=== PATIENT | female | born 1970 | race Caucasian/White ===

== ENCOUNTER 2023-11-19 23:10 | Emergency (ER) | payer MEDICAID, OTHER ==
[~2023-11-19] VITALS: Ht 157.5 cm; Wt 65.8 kg
[2023-11-19 23:23] VITALS: BP 131/59; PULSE 63; RESP 14; TEMP 98.6; O2SAT 99
[2023-11-20] MEDS ORDERED: ACET500T99 PO (00:18)
[2023-11-20] MEDS ORDERED: SULF-59 PO (00:18)
[2023-11-20] MEDS: ACETAMINOPHEN EXTRA STRENGTH 500 MG TAB PO ONE (00:22)
== END 2023-11-20 00:26 | disposition home or self-care (01) ==
LOC: MED 23:10
DX: S61.214A Laceration without foreign body of right ring finger without damage to nail, initial encounter (principal); Z79.899 Other long term (current) drug therapy; W45.8XXA Other foreign body or object entering through skin, initial encounter; Y93.89 Activity, other specified; Y92.89 Other specified places as the place of occurrence of the external cause; Y99.0 Civilian activity done for income or pay
CPT/HCPCS: 90471; 90715; 99283